=== PATIENT | male | born 1950 | race Caucasian/White ===

== ENCOUNTER 2020-04-28 12:14 | Emergency (ER) | payer MEDICARE ==
[~2020-04-28] VITALS: Ht 185.4 cm; Wt 104.3 kg
[2020-04-28] MEDS ORDERED: KETOROLAC TROMETHAMINE 30 MG/ML VIAL IV STA (12:51)
--- NOTE | 2020-04-28 13:00 | Emergency Department Note ---
History of Present Illnes History of Present Illness History of Present Illness This is a 69 year old male . Historian: Patient Arrival Mode: Car Onset (how long ago): day(s) (5) Radiation: Reports back, Reports extremity Severity: moderate Onset quality: gradual Duration (how long): day(s) (5) Timing of current episode: constant Progression: worsening Chronicity: recurrent Relieving factors: none Exacerbating factors: movement Treatments prior to arrival: NSAID Past Medical/Family History Physician Review I have reviewed the patient's past medical and family history. Any updates have been documented here. Past Medical History Recent Fever: No Clinical Suspicion of Infectio: No Past Medical History: Hypertension, Diabetes Other Medical History: depression Past Surgical History: None Social History Smoking Cessation: Never Smoker Alcohol Use: Daily (4 drinks per day told in past to stop alcohol use) Any Illegal Drug Use: No TB Exposure/Symptoms: No Physically hurt or threatened: No Other Any Pre-Existing Lines (PICC,: No Is patient up to date on immun: No Review of Systems Review of Systems Constitutional: Reports no symptoms Cardiovascular: Reports no symptoms Respiratory: Reports no symptoms Gastrointestinal: Reports no symptoms Genitourinary: Reports no symptoms Musculoskeletal: Reports back pain (left lower radiating to left hip) Integumentary: Reports no symptoms Neurological: Reports no symptoms Psychological: Reports no symptoms Endocrine: Reports no symptoms Hematological/Lymphatic: Reports no symptoms Review of other systems: All other systems negative Physical Exam Related Data Vital signs reviewed: Yes Physical Exam CONSTITUTIONAL Constitutional: Present well-developed, Present well-nourished HENT HENT: Present normocephalic, Present atraumatic, Present oropharynx normal EYES Eyes: Reports PERRL, Reports conjunctivae normal, Reports EOM normal, Reports lids normal NECK Neck: Present ROM normal, Present supple PULMONARY Pulmonary: Present effort normal, Present breath sounds normal CARDIOVASCULAR Cardiovascular: Present regular rhythm, Present heart sounds normal, Present intact distal pulses, Present capillary refill normal, Present normal rate GASTROINTESTINAL Abdominal: Present soft, Present nontender, Present bowel sounds normal, Present other (no palpable masses) GENITOURINARY Genitourinary: Present exam deferred SKIN Skin: Present warm, Present dry MUSCULOSKELETAL Musculoskeletal: Present ROM normal, Present other (no point tenderness to lumbar area Lower extremity FROM mild hip pain with ROM) NEUROLOGICAL Neurological: Present alert, Present oriented x 3, Present DTRs normal, Present no gross motor or sensory deficits PSYCHOLOGICAL Psychological: Present mood/affect normal, Present behavior normal, Present thought content normal, Present judgement normal (SLR Negative for Pain) Results Laboratory Laboratory cbc and UA wnl elect. glucose 131 mildly elevated and creatinine 1.3 Imaging Imaging results reviewed: Yes Impressions l5 s1 deg changes and deg changes left hip with a 2.1 cm increased sclerotic area needs evaluation with a ct copies given to patient Assessment & Plan Medical Decision Making MDM deg changes both hip and lumbar sacral spine Assessment & Plan Final Impression: (1) Osteoarthrosis, hip (2) Lumbar back pain Depart Disposition: HOME, SELF-shelter Meds Active Scripts Cyclobenzaprine Hcl (FLEXERIL) 5 Mg Tablet, 5 MG PO TID for back pain for 5 Days, #15 0 Refills Prov:TIN BETANCOURT MD 04/28/20 Acetaminophen With Codeine (TYLENOL WITH CODEINE #3 TABLET) 1 Each Tablet, 300 MG PO QID for pain for 3 Days, #12 TAB 0 Refills Prov:TIN BETANCOURT MD 04/28/20 Medications in the ED will send pt home on flexeril 65 mg po tid and tylenol # 3 for pain TIN BETANCOURT MD Apr 28, 2020 13:00
--- NOTE | 2020-04-28 13:28 | Diagnostic Imaging Report ---
- views HISTORY: ^pain ^[id number] ^1305 ^N COMPARISON: None available. FINDINGS: Bones: No acute displaced fracture. Osseous alignment is within normal limits. Joints: Mild to moderate degenerative changes of the left acetabular femoral joint. 2.1 cm increased sclerotic bone within the acetabulum is not well seen but appears to have a nonaggressive appearance. Soft tissues: Multiple surgical clips overlying the pelvis. IMPRESSION: No acute radiographic abnormality. Degenerative changes of the left hip. Incompletely evaluated sclerotic lesion within the left acetabulum. This finding can be evaluated with CT pelvic without contrast. Signed by: Dr. Rosa Hinojosa M.D. on 04/28/2020 1:25 PM
--- NOTE | 2020-04-28 13:42 | Diagnostic Imaging Report ---
LUMBAR SPINE X-RAY - 3 VIEWS HISTORY: ^pain ^[id number] ^1305 ^N COMPARISON: None available. FINDINGS: Bones: No acute displaced fracture. 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 Osseous alignment is within normal limits. Joints: Multilevel degenerative changes, which is severe at L5-S1 resulting in foraminal and recess space narrowing. Mild decrease in height of L5 appear chronic. Soft tissues: The soft tissues appear unremarkable. IMPRESSION: No acute radiographic abnormality. Severe degenerative changes at L5-S1. Signed by: Dr. Rosa Hinojosa M.D. on 04/28/2020 1:38 PM
[2020-04-28] MEDS ORDERED: KETOROLAC TROMETHAMINE 30 MG/ML VIAL ONE (13:49)
[2020-04-28] MEDS ORDERED: TYLENOL WITH C1 EACH PO (13:59)
[2020-04-28] MEDS ORDERED: CYCLOBENZAPRINE5 MG PO (14:00)
--- NOTE | 2020-04-29 13:39 | NUR ---
BHAKTI, CALLED NO FERNANDO NUMBER ON CONTROLLED PAIN MEDICATIONS, VERIFIED PT INFO AND RX. DOC NAME CHANGED TO DR METCALF, VERBAL ORDER PER DR METCALF.
== END 2020-04-28 15:12 | disposition home or self-care (01) ==
LOC: FSED 12:57
DX: M16.12 Unilateral primary osteoarthritis, left hip (principal); M54.5 Low back pain; E11.65 Type 2 diabetes mellitus with hyperglycemia; I10 Essential (primary) hypertension; F32.9 Major depressive disorder, single episode, unspecified
CPT/HCPCS: 72100; 73502; 80053; 81003; 85025; 99283; J1885